=== PATIENT | female | born 1950 | race Hispanic/Latino ===

== ENCOUNTER → 2023-12-30 | Outpatient (CLI) | payer OTHER, MEDICARE | END | disposition home or self-care (01) | LOC: SHCH 10:49 | PROVIDERS: ATTEND Internal Medicine Cardiovascular Disease | DX: I87.2 Venous insufficiency (chronic) (peripheral) (principal) | CPT/HCPCS: 93970 ==

== ENCOUNTER → 2024-09-19 | Outpatient (CLI) | payer MEDICARE | END | disposition home or self-care (01) | LOC: SHCH 14:24 | PROVIDERS: ATTEND Internal Medicine Cardiovascular Disease | DX: I87.2 Venous insufficiency (chronic) (peripheral) (principal) | CPT/HCPCS: 93971 ==

== ENCOUNTER → 2024-12-14 | Outpatient (CLI) | payer OTHER, MEDICARE ==
--- NOTE | 2024-12-20 14:43 | HMCSR ---
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 (R) 49.8cm/sec, Biphasic, Prof Fem Art. (L) 49.8cm/sec, Biphasic, Fem Art Prox. (R) 90.3cm/sec, Biphasic, Fem Art Prox. (L) 96.1cm/sec, Biphasic, Fem Art Mid. (R) 65.3cm/sec, Biphasic, Fem Art Mid. (L) 82.2cm/sec, Biphasic, Fem Art Dist (R) 57.9cm/sec, Biphasic, Fem Art Dist. (L) 52.2cm/sec, Biphasic, Pop Art(AK) (R) 58.7cm/sec, Biphasic, Pop Art (AK) (L) 72.6cm/sec, Biphasic, Pop Art (Fossa)(R) 56.6cm/sec, Biphasic, Pop Art (Fossa) (L) 71.8cm/sec, Biphasic, Pop Art(BK) (R) 74.5cm/sec, Biphasic, Pop Art (BK) (L) 74.2cm/sec, Biphasic, CATCHER PLUG Prox. (R) 106.8cm/sec, Biphasic, CATCHER PLUG Prox. (L) 26.2cm/sec, Biphasic, CATCHER PLUG Mid. (R) 82.5cm/sec, Biphasic, CATCHER PLUG Mid. (L) 35.9cm/sec, Biphasic, CATCHER PLUG Dist. (R) 65.5cm/sec, Biphasic, CATCHER PLUG Dist. (L) 31.1cm/sec, Biphasic, Per Art Prox. (R) 57.4cm/sec, Biphasic, Per Art Prox. (L) 62.8cm/sec, Biphasic, Per Art Mid. (R) 50.2cm/sec, Biphasic, Per Art Mid. (L) 74.5cm/sec, Biphasic, Per Art Dist. (R) 44.0cm/sec, Biphasic, Per Art Dist. (L) 61.9cm/sec, Biphasic, HARMONY Prox. (R) 104.9cm/sec, Biphasic, HARMONY Prox. (L) 93.0cm/sec, Biphasic, HARMONY Mid. (R) 68.2cm/sec, Biphasic HARMONY Mid. (L) 53.8cm/sec, Biphasic, HARMONY Dist. (R) 85.2cm/sec, Biphasic, HARMONY Dist. (L) 94.9cm/sec, Biphasic, Technologist Impression No evidence of significant arterial insufficiency of bilateral lower extremities. Conclusion No evidence of significant arterial insufficiency of bilateral lower extremities. Conclusion No evidence of significant arterial insufficiency of bilateral lower extremities.
== END | disposition home or self-care (01) ==
LOC: SHCH 10:12
PROVIDERS: ATTEND Internal Medicine Cardiovascular Disease
DX: I73.9 Peripheral vascular disease, unspecified (principal)
CPT/HCPCS: 93925

== ENCOUNTER 2025-10-08 10:20 | Emergency (ER) | payer MEDICARE ==
[~2025-10-08] VITALS: Ht 147.3 cm; Wt 58.1 kg
--- NOTE | 2025-10-08 10:25 | ERN ---
ED Note History of Present Illness Stated Complaint: RT SHOULDER INJURY POST FALL Chief Complaint: Shoulder Injury/Pain Time Seen by MD: 10:22 Dictation: PATIENT IS A 75-YEAR-OLD FEMALE COMING IN VIA EMS FROM A LOCAL RESTAURANT STATUS POST A FALL. SHE STATES SHE WAS WALKING WHEN SHE TRIPPED ON A RUG, LANDED ON HER BILATERAL KNEES AND RIGHT SHOULDER. NO HEAD INJURY NO LOC NO NAUSEA VOMITING NO MIDLINE SPINE PAIN. HE IS NOT ON ANY BLOOD THINNERS AND THERE WAS NO TRAUMA ALERT CRITERIA. DECREASED RANGE OF MOTION TO RIGHT SHOULDER SECONDARY TO PAIN. Allergies: Coded Allergies: No Known Allergies (Unverified Allergy, Unknown, 10/08/25) Home Meds Active Scripts Acetaminophen with Codeine (Acetaminophen-Cod #3 Tablet) 300 Mg-30 Mg Tablet, 1 TAB PO Q4H PRN for MODERATE TO SEVERE PAIN, #12 TAB 0 Refills Prov:JOSE E LYNN EDY 10/08/25 Past Medical History History: Not Applicable RN Note Reviewed/Agreed w/PFSH: Yes Review of System Dictation CONSTITUTIONAL: NEGATIVE EXCEPT FOR HPI HEAD/FACE: NEGATIVE EXCEPT FOR HPI EENT: NEGATIVE EXCEPT FOR HPI RESPIRATORY: NEGATIVE EXCEPT FOR HPI GASTROINTESTINAL/ABDOMINAL: NEGATIVE EXCEPT FOR HPI GENITOURINARY: NEGATIVE EXCEPT FOR HPI MUSCULOSKELETAL: NEGATIVE EXCEPT FOR HPI RIGHT SHOULDER, BILATERAL KNEE PAIN INTEGUMENTARY: NEGATIVE EXCEPT FOR HPI NEUROLOGICAL/PSYCH: NEGATIVE EXCEPT FOR HPI HEMATOLOGIC/LYMPHATIC: NEGATIVE EXCEPT FOR HPI ALL SYSTEMS NEGATIVE, EXCEPT NOTED ABOVE. 13 POINT REVIEW OF SYSTEMS ASSESSED AND ALL NEGATIVE EXCEPT FOR ABOVE. Initial Vital Sign VS Vital Signs Date Time Temp Pulse Resp B/P (MAP) Pulse Ox O2 Delivery O2 Flow Rate FiO2 10/08/25 10:23 98.2 61 20 122/59 99 Room Air 0 10/08/25 11:15 21 Physical Exam Dictation VITAL SIGNS REVIEWED GENERAL APPEARANCE: ALERT, ORIENTED X 3, MODERATE ACUTE DISTRESS, WELL DEVELOPED, NOURISHED. HEAD AND FACE: NON-TRAUMATIC. NO HEAD TRAUMA EYES: PERRL, PINK CONJUNCTIVAS, EYELID NO TRAUMA, ANTERIOR CHAMBER WITH ARCUS SENILIS. EARS: PINNAS INTACT AND NO SIGNS OF TRAUMA OR ERYTHEMA EAR CANALS CLEAR AND NO DISCHARGE TM NO ERYTHEMA NOSE: NO DISCHARGE, NO BLEEDING. OROPHARYNX: MOUTH NORMAL, TONGUE PINK, PHARYNX CLEAR,NO ERYTHEMA, TONSILS NO EXUDATES, NO ABSCESSES NOTED, MUCOUS MEMBRANE MOIST NECK: SUPPLE, NON-TENDER, NO THYROMEGALY, NO MASSES, NO JVD, NO BRUITS BREAST:DEFERRED CHEST:NO TENDERNESS, NO CREPITUS, NO PARADOXICAL MOVEMENT, NO RETRACTIONS LUNGS:CLEAR, WELL-VENTILATED, SYMMETRIC, NO RALES, NO WHEEZING, NO RHONCHI, NO STRIDOR, GOOD BREATH SOUNDS BILATERALLY HEART: REGULAR RATE, REGULAR RHYTHM, NO MURMUR, NO GALLOPS VASCULAR: NO PERIPHERAL EDEMA, ABDOMEN: SOFT, POSITIVE BOWEL SOUNDS, NONDISTENDED, NO GUARDING, NONTENDER, NO REBOUND, NO MASSES NO HEPATOMEGALY, NO SPLENOMEGALY, NO MARQUES'S SIGN, NO HERNIAS. RECTAL: DEFERRED GENITAL: DEFERRED NEUROLOGICAL: NORMAL SPEECH, MOTOR FUNCTION INTACT, SENSORY FUNCTION INTACT MUSCULOSKELETAL: BILATERAL KNEE TENDERNESS WITHOUT DISPLACEMENT. SHORTENING OR ROTATION OF EITHER LOWER EXTREMITY. TENDERNESS WITH PALPATION TO RIGHT ANTERIOR SHOULDER WITHOUT FULLNESS. DECREASED RANGE OF MOTION SECONDARY TO PAIN. SKIN: COLOR PINK, DRY, NO TURGOR, NO RASH, NO LACERATIONS, NO ABRASIONS, NO CONTUSIONS. LYMPHATIC: DEFERRED Results (Laboratory/Radiology) Laboratory/Radiology 1108/BILATERAL KNEES NEGATIVE EXCEPT FOR DEGENERATIVE CHANGES COMMINUTED FRACTURE RIGHT HUMERAL HEAD Labs Reviewed?: Yes ED Course ED Course Orders Procedure Category Date Status Time Shoulder Comp 2+Vws Rt RAD 10/08/25 Taken Knee 3vws Lt RAD 10/08/25 Taken 10:22 Knee 3vws Rt RAD 10/08/25 Taken 10:22 Apply Ice Pack To: CPOE 10/08/25 Transmitted (Er) 10:22 Acetaminophen With PHA 10/08/25 Complete Codeine (Tylenol-Code 10:30 Shoulder Immobilizer ANGE 10/08/25 In Process 11:07 Current Medications Medications (Trade) Dose Ordered Sig/Chelita Route PRN Reason Start Time Stop Time Status Last Admin Dose Admin Acetaminophen/ Codeine Phosphate (TYLenol-coDEINE TAB) 2 tab ONCE ONCE PO 10/08/25 10:30 10/08/25 10:31 DC 10/08/25 10:40 Vital Signs Date Time Temp Pulse Resp B/P (MAP) Pulse Ox O2 Delivery O2 Flow Rate FiO2 10/08/25 11:15 98.2 61 20 121/63 99 Room Air* 0 21 10/08/25 10:23 98.2 61 20 122/59 99 Room Air 0 1110/SHOULDER IMMOBILIZER PLACED TO RIGHT SHOULDER BY TECH. NEUROVASCULAR CMS INTACT POST PLACEMENT Medical Decision Making MDM MEDICAL DECISION-MAKING BASED ON X-RAYS OF BOTH KNEES AND RIGHT SHOULDER STATUS POST FALL. PATIENT HAS A COMMINUTED RIGHT HUMERAL HEAD FRACTURE BILATERAL KNEES DEGENERATIVE CHANGES ONLY SHOULDER IMMOBILIZER IN PLACE TYLENOL WITH THE CODEINE PRESCRIBED FOR MODERATE TO SEVERE PAIN PATIENT REFERRED TO DR. MADHAV CLAROS DX & DISP Disposition: Discharge Departure Impression: Primary Impression: Fracture of humeral head, right, closed Additional Impressions: Contusion of left knee, initial encounter, Contusion of knee, right, Fall Condition: Stable Scripts Acetaminophen with Codeine (Acetaminophen-Cod #3 Tablet) 300 Mg-30 Mg Tablet 1 TAB PO Q4H PRN for MODERATE TO SEVERE PAIN, #12 TAB 0 Refills Prov: JOSE E LYNN 10/08/25 Additional Instructions: Follow-up with primary care provider in 1 to 2 days. Take medications as direc thomas here in the emergency room. Okay to continue home medications unless otherwise discussed during your visit in the emergency room today. Return to your nearest emergency room if symptoms worsen or if there is no improvement. Call 911 if you need immediate assistance. Take Tylenol or Motrin [id number] as needed and if no contraindications are present. Increase oral hydration. A wound culture or urine culture was ordered here in the emergency room department please follow-up with primary care provider and advise them to get repeat ports from our facility. If you had any Husam wrap/splints that were applied here, please do not remove them until you see your primary care or specialty. Shoulder immobilizer and no weight-bearing until cleared by Orthopedics, call for an appointment tomorrow. Cool compresses to right shoulder and knees three to 4 times a day. Take Tylenol with codeine as needed for severe pain. Referrals: AMAN CAMERON (PCP) MADHAV CLAROS MD Time of Disposition: 11:10 I have reviewed the case, and I agree with, Diagnosis and Plan JOSE E LYNN Oct 08, 2025 10:25
[2025-10-08] MEDS ORDERED: ACET-2079 PO (11:11)
[2025-10-08 11:15] VITALS: BP 121/63; PULSE 61; RESP 20; TEMP 98.2; O2SAT 99
--- NOTE | 2025-10-08 12:07 | HMCIMG ---
EXAM: CR right Shoulder, 1 View. CLINICAL HISTORY: RIGHT SHOULDER PAIN STATUS POST FALL COMPARISON: None provided. FINDINGS: Mildly displaced, comminuted intra-articular fracture of the surgical neck and head of the proximal right humerus. Joint spaces remain anatomically aligned. No abnormality within the visualized chest. IMPRESSION: 1. Mildly displaced, comminuted intra-articular fracture of the surgical neck and head of the proximal right humerus. /[place]
--- NOTE | 2025-10-08 12:08 | HMCIMG ---
EXAM: CR left Knee, 3 View. CLINICAL HISTORY: KNEE PAIN STATUS POST FALL COMPARISON: None provided. FINDINGS: BONES: No acute fracture or aggressive appearing osseous lesion. JOINTS: Medial compartment predominant mild to moderate tricompartmental left knee joint osteoarthritis. No knee joint effusion. SOFT TISSUES: The soft tissues are unremarkable. IMPRESSION: 1. No acute osseous injury. 2. Mild to moderate tricompartmental left knee osteoarthritis, predominantly in the medial compartment. /[place]
--- NOTE | 2025-10-08 12:09 | HMCIMG ---
EXAM: CR right Knee, 3 View. CLINICAL HISTORY: KNEE PAIN STATUS POST FALL COMPARISON: None provided. FINDINGS: BONES: No acute fracture or aggressive appearing osseous lesion. JOINTS: Medial compartment predominant mild to moderate tricompartmental right knee joint osteoarthritis. No knee joint effusion. SOFT TISSUES: The soft tissues are unremarkable. IMPRESSION: 1. No acute findings. 2. Mild to moderate tricompartmental right knee osteoarthritis, predominantly in the medial compartment. /[place]
== END 2025-10-08 11:41 | disposition home or self-care (01) ==
LOC: EDH 10:20
DX: S42.211A Unspecified displaced fracture of surgical neck of right humerus, initial encounter for closed fracture (principal); S80.01XA Contusion of right knee, initial encounter; S80.02XA Contusion of left knee, initial encounter; W01.0XXA Fall on same level from slipping, tripping and stumbling without subsequent striking against object, initial encounter; Y93.01 Activity, walking, marching and hiking; Y92.89 Other specified places as the place of occurrence of the external cause; Y99.8 Other external cause status
CPT/HCPCS: 29105; 73030; 73562; 99284